=== PATIENT | female | born 1955 | race Asian ===

== ENCOUNTER → 2022-12-07 | Outpatient (CLI) | payer MEDICARE, OTHER ==
[2022-12-07 20:26] LABS: Folate (Folic Acid) > 24.00 ng/mL (5.38-24)
== END | disposition home or self-care (01) ==
LOC: LAB 12:11
PROVIDERS: ATTEND Allergy & Immunology
DX: M35.00 Sjogren syndrome, unspecified (principal); J30.1 Allergic rhinitis due to pollen; R06.02 Shortness of breath
CPT/HCPCS: 36415; 82607; 82746; 85652; 86038; 86225; 86235; 86431